=== PATIENT | male | born 1990 | race African-American/Black ===

== ENCOUNTER 2016-11-23 20:16 | Emergency (ER) | payer OTHER, SELFPAY ==
[~2016-11-23 20:16] MED LIST: ABIL15TA2 PO; ADVI200C5 PO; ARIP5TA PO; BACIOIN7 TOP; LAMI25TA PO; LITH300T2 OR; NORCOTAB PO; No Historical Meds; PARO20TA2 PO; PAXI20TA3 PO; PAXI30TA OR; TRAZ50TA4 PO; TRIL300S PO; TYLE325T5 PO; [UNRECOGNIZED DRUG - CODE] PO; [UNRECOGNIZED DRUG - REMARK]
[2016-11-23] MEDS ORDERED: IBUPROFEN 600 MG TAB As Ordered ONE (22:13)
[2016-11-23] MEDS ORDERED: ASPIRIN 81 MG CHEW TABLET As Ordered ONE (22:13)
[2016-11-23 22:23] LABS: BASO % 0.4 % (0.0-1.0); EOS # 0.1 K/mm3 (0.0-0.50); LARGE UNSTAINED CELL # 0.2 K/mm3 (0.0-0.4); LARGE UNSTAINED CELL % 1.6 % (0.0-4.0); LYMPH # 2.6 K/mm3 (1.5-6.5); LYMPH % 23.6 % (24.0-44.0); MEAN CORPUSCULAR HEMOGLOBIN 29.4 pg (27.0-33.0); MEAN CORPUSCULAR VOLUME 91.6 fl (80.0-96.0); MONO # 0.7 K/mm3 (0.0-0.8); MONO % 6.1 % (0.0-5.0); NEUTROPHILS # 7.4 K/mm3 (1.8-7.7); NEUTROPHILS % 67.3 % (36.0-66.0); PLATELET COUNT, AUTOMATED 268 k/mm3 (150-450); RED CELL DISTRIBUTION WIDTH 12.5 % (11.5-14.5)
[2016-11-23] MEDS ORDERED: LABETALOL 100 MG TAB As Ordered ONE (22:24)
[2016-11-23 22:48] LABS: BLOOD UREA NITROGEN 6 MG/DL (7-18); CREATININE FOR GFR 1.21 MG/DL (0.70-1.30); GLUCOSE, FASTING 84 MG/DL (70-105)
[2016-11-23 23:08] LABS: ANION GAP 7 MEQ/L (8-16); CARBON DIOXIDE LEVEL 28 MEQ/L (21-32); CHLORIDE LEVEL 105 MEQ/L (98-107); POTASSIUM SERUM 3.9 MEQ/L (3.5-5.1); SODIUM LEVEL 140 MEQ/L (136-145)
[2016-11-23] MEDS ORDERED: CYCLOBENZAPRINE 10 MG TAB As Ordered ONE (23:16)
--- NOTE | 2016-11-23 23:56 | EDDOCDS ---
Physician Documentation [facility] Name: Penny Vu Age: 26 yrs Sex: Male : 1990 Arrival Date: 11/23/2016 Time: 20:16 Bed 9 Private MD: NO PRIMARY PHYSICIAN, . Disposition: 11/23/16 23:11 Discharged to Home/Self Care. Impression: Other chest pain - musculoskeletal pain. - Condition is Stable. - Discharge Instructions: Musculoskeletal Pain, Muscle Pain, Adult. - Prescriptions for Ibuprofen 600 mg Oral Tablet - take 1 tablet by ORAL route every 6 hours As needed take with food; 30 tablet. Cyclobenzaprine 10 mg Oral Tablet - take 1 tablet by ORAL route 3 times per day As needed; 15 tablet. - Work Release Form - 2 day, Medication Reconciliation, Local Pharmacy Hours form. - Follow up: [facility] - Adults; When: Call to arrange an appointment; Reason: Recheck today's complaints, Continuance of care. - Problem is new. - Symptoms are unchanged. Historical: - Allergies: Amoxicillin (Upset stomach); PENICILLINS (Upset stomach); Paxil (erection dysfunction); - Home Meds: 1. none - PMHx: Anxiety; Bipolar disorder; Depression; Heart Murmur; Schizophrenia; - PSHx: Hernia repair- Umbilical; - Social history: Smoking status: Patient uses tobacco products, light tobacco smoker. No barriers to communication noted, The patient speaks fluent Macanese. - Family history: Not pertinent. - : The pt / caregiver states he / she is not on anticoagulants. Home medication list is obtained from the patient. - Exposure Risk Screening:: None identified. Vital Signs: 11/23 20:18 BP 127 / 61; Pulse 70; Resp 18; Temp 98.5(O); Pulse Ox 100% on R/A; Weight 104.78 kg / rs3 231 lbs (M); Height 5 ft. 11 in. (180.34 cm) (R); Pain 8/10; 23:24 BP 122 / 60; Pulse 67; Resp 18 S; Temp 97.9(O); Pulse Ox 100% on R/A; af2 20:18 Body Mass Index 32.22 (104.78 kg, 180.34 cm) rs3 MDM: 21:21 Aspirin Chewable Tablet 324 mg PO once ordered. ke 21:21 Inclined Railway Operator/Pulse Ox/q 30 min VS ordered. ke 21:21 IV Saline Lock ordered. ke 21:21 Rhythm Strip to chart ordered. ke 21:21 Undress patient appropriately for examination ordered. ke 21:21 Ibuprofen 600 mg PO once ordered. ke 21:21 Basic Metabolic Profile Ordered. EDMS 21:21 CBC with Diff Ordered. EDMS 21:21 Cardiac Injury Profile Ordered. EDMS 21:21 Troponin Ordered. EDMS 21:22 ECG WITH READING ER PHYS+CARDIAG ordered. EDMS 21:23 Rib Unilat W/PA Chest Only Ordered. EDMS 21:24 [facility] [place] was scanned into [employer] and attached to record. ks16 21:42 Financial registration complete. ks16 23:08 CBC with Diff Reviewed. ke 23:08 Cardiac Injury Profile Reviewed. ke 23:08 Troponin Reviewed. ke 23:12 Cyclobenzaprine 10 mg PO once ordered. ke Administered Medications: 22:16 Drug: Ibuprofen 600 mg [ibuprofen 600 mg tablet (1 tabs)] Route: PO; af2 22:18 Drug: Aspirin 324 mg [aspirin 81 mg chewable tablet (4 tabs)] Route: PO; af2 23:23 Drug: Cyclobenzaprine 10 mg [cyclobenzaprine 10 mg tablet (1 tabs)] Route: PO; af2 Signatures: Dispatcher [employer] EDSantos Back, WATER SAFETY TEACHER WATER SAFETY TEACHER Mirna ApodacaRN RN rs3 Deyanira Pena RN RN af2 Shira Nunez, Reg Reg ks16 The chart was reviewed and I authenticate all verbal orders and agree with the evaluation and treatment provided.Attachments: 21:24 [facility] Payment Agreement ks16 MTDD
--- NOTE | 2016-11-23 23:56 | EDDOCDS ---
Nurse's Notes [facility] Name: Penny Vu Age: 26 yrs Sex: Male : 1990 Arrival Date: 11/23/2016 Time: 20:16 Bed 9 Private MD: NO PRIMARY PHYSICIAN, . Diagnosis: Other chest pain-musculoskeletal pain Presentation: 11/23 20:31 Presenting complaint: Patient states: sharp right anterior chest pain radiates to Right rs3 shoulder blade, unable to lift right arm above shoulder since this evening. went to work 4 PM. 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 pain worse with deep breathing. Aspirin was not taken prior to arrival. Adult Sepsis Screening: The patient does not have new or worsening altered mentation. Patient's respiratory rate is less than 22. Systolic blood pressure is greater than 100. Patient has a qSOFA score of 0- Negative Sepsis Screen. Suicide/Homicide risk assessment- the patient denies having any suicidal and/or homicidal ideations and does not present with any other emotional, behavioral or mental health complaints. Status: Patient is not a cargo service agent or dependent. Transition of care: patient was not received from another setting of care. 20:31 Method Of Arrival: Walkin/Carried/Asstd rs3 20:31 Acuity: HERMES Level 3 rs3 Triage Assessment: 20:38 General: Appears in no apparent distress. Pain: Location: anterior aspect of right rs3 upper chest, right lateral posterior chest and right arm. Pt Declines HIV testing. Cardiovascular: Chest pain is described as Pain is 7 out of 10 on a pain scale. radiates to right scapula episodes are continuous began 3 hours prior to arrival. Historical: - Allergies: Amoxicillin (Upset stomach); PENICILLINS (Upset stomach); Paxil (erection dysfunction); - Home Meds: 1. none - PMHx: Anxiety; Bipolar disorder; Depression; Heart Murmur; Schizophrenia; - PSHx: Hernia repair- Umbilical; - Social history: Smoking status: Patient uses tobacco products, light tobacco smoker. No barriers to communication noted, The patient speaks fluent Armenian. - Family history: Not pertinent. - : The pt / caregiver states he / she is not on anticoagulants. Home medication list is obtained from the patient. - Exposure Risk Screening:: None identified. Screenin:23 Screening information is obtained from the patient. Fall risk: No risks identified. af2 Assistance ADL's: requires no assistance with activities of daily living. Abuse/DV Screen: The patient / caregiver reports he/she is: not in a situation that causes fear, pain or injury. Nutritional screening: No deficits noted. Advance Directives: Currently, there is no health care proxy. home support is adequate. Assessment: 22:19 General: Appears in no apparent distress, comfortable, Behavior is appropriate for age, af2 cooperative. Pain: Location: chest and right lateral posterior chest Pain currently is 8 out of 10 on a pain scale. Neurological: Level of Consciousness is awake, alert, obeys commands. Cardiovascular: Heart tones S1 S2 present Rhythm is sinus rhythm No ectopy. Respiratory: Airway is patent Respiratory effort is even, unlabored, Breath sounds are clear bilaterally. Derm: Skin is normal. 22:20 General: reports lifting boxes at work, pain began then. states pain aggravated by af2 lifting arms, taking deep breaths.. 23:23 General: Appears in no apparent distress, comfortable, Behavior is appropriate for age, af2 cooperative. Neurological: Level of Consciousness is awake, alert, obeys commands. Cardiovascular: Rhythm is sinus rhythm No ectopy. Respiratory: Airway is patent Respiratory effort is even, unlabored. Derm: Skin is normal. Vital Signs: 20:18 BP 127 / 61; Pulse 70; Resp 18; Temp 98.5(O); Pulse Ox 100% on R/A; Weight 104.78 kg rs3 (M); Height 5 ft. 11 in. (180.34 cm) (R); Pain 8/10; 23:24 BP 122 / 60; Pulse 67; Resp 18 S; Temp 97.9(O); Pulse Ox 100% on R/A; af2 20:18 Body Mass Index 32.22 (104.78 kg, 180.34 cm) rs3 Vitals: 20:18 Log In Time: November 23, 2016 at 20:16. ct3 ED Course: 20:18 Patient visited by Emma Wei PCA. ct3 20:18 NO PRIMARY PHYSICIAN, . is Private Physician. ct3 20:18 Patient moved to Waiting ct3 20:19 Patient moved to Pre RCE ct3 20:36 Triage Initiated rs3 20:49 Patient moved to Triage 2 mdr 21:07 [facility] Webb FNP [facility]. ke 21:16 Patient visited by Santos Webb FNP. ke 21:24 [facility] Payment Agreement was scanned into [employer] and attached to record. ks16 21:28 Patient visited by Casey Leslie PCA. mdr 21:28 EKG done. (by ED staff). Reviewed by Santos ZIEGLER. mdr 21:29 Deyanira PenaRN is Primary Nurse. mdr 21:29 Patient moved to 9 mdr 21:31 Patient visited by Santos Webb FNP. ke 21:37 Patient visited by Suyapa Diop. nb2 21:37 Placed in gown. Bed in low position. Call light in reach. Side rails up X2. Cardiac nb2 monitor on. Pulse ox on. NIBP on. 22:16 Patient visited by Deyanira Pena RN. af2 22:16 Inserted saline lock: 18 gauge in right antecubital area and blood collected. The tm5 patient tolerated the procedure well. Labs drawn. (by ED staff). Sent per order to lab. 22:16 Basic Metabolic Profile Sent. tm5 22:16 CBC with Diff Sent. tm5 22:16 Cardiac Injury Profile Sent. tm5 22:16 Troponin Sent. tm5 23:03 Patient visited by Deyanira Pena RN. af2 23:10 [facility] is Referral Physician. ke 23:23 Discontinued IV lock intact, bleeding controlled, pressure dressing applied, No af2 redness/swelling at site. No procedures done that require assistance. 23:25 Patient visited by Deyanira Pena RN. af2 23:25 The patient / caregiver is instructed regarding the plan of care and ED course. af2 Administered Medications: 22:16 Drug: Ibuprofen 600 mg [ibuprofen 600 mg tablet (1 tabs)] Route: PO; af2 22:18 Drug: Aspirin 324 mg [aspirin 81 mg chewable tablet (4 tabs)] Route: PO; af2 23:23 Drug: Cyclobenzaprine 10 mg [cyclobenzaprine 10 mg tablet (1 tabs)] Route: PO; af2 Order Results: Lab Order: Basic Metabolic Profile; SPEC'M 11/23/16 22:14 Test: GLUCOSE, FASTING; Value: 84; Range: 70-105; Units: MG/DL; Status: F Test: BLOOD UREA NITROGEN; Value: 6; Range: 7-18; Abnormal: Below low normal; Units: MG/DL; Status: F Test: CREATININE FOR GFR; Value: 1.21; Range: 0.70-1.30; Units: MG/DL; Status: F Test: SODIUM LEVEL; Value: 140; Range: 136-145; Units: MEQ/L; Status: F Test: POTASSIUM SERUM; Value: 3.9; Range: 3.5-5.1; Units: MEQ/L; Status: F Test: CHLORIDE LEVEL; Value: 105; Range: 98-107; Units: MEQ/L; Status: F Test: CARBON DIOXIDE LEVEL; Value: 28; Range: 21-32; Units: MEQ/L; Status: F Test: ANION GAP; Value: 7; Range: 8-16; Abnormal: Below low normal; Units: MEQ/L; Status: F Test: CALCIUM LEVEL; Value: 9.0; Range: 8.5-10.1; Units: MG/DL; Status: F Lab Order: CBC with Diff; SPEC'M 11/23/16 22:14 Test: WHITE BLOOD COUNT; Value: 11.0; Range: 4.0-10.0; Abnormal: Above high normal; Units: K/mm3; Status: F Test: RED BLOOD COUNT; Value: 4.76; Range: 4.30-6.10; Units: M/mm3; Status: F Test: HEMOGLOBIN; Value: 14.0; Range: 14.0-18.0; Units: g/dl; Status: F Test: HEMATOCRIT; Value: 43.6; Range: 42.0-52.0; Units: %; Status: F Test: MEAN CORPUSCULAR VOLUME; Value: 91.6; Range: 80.0-96.0; Units: fl; Status: F Test: MEAN CORPUSCULAR HEMOGLOBIN; Value: 29.4; Range: 27.0-33.0; Units: pg; Status: F Test: MEAN CORPUSCULAR HGB CONC; Value: 32.0; Range: 32.0-36.5; Units: g/dl; Status: F Test: RED CELL DISTRIBUTION WIDTH; Value: 12.5; Range: 11.5-14.5; Units: %; Status: F Test: PLATELET COUNT, AUTOMATED; Value: 268; Range: 150-450; Units: k/mm3; Status: F Test: NEUTROPHILS %; Value: 67.3; Range: 36.0-66.0; Abnormal: Above high normal; Units: %; Status: F Test: LYMPH %; Value: 23.6; Range: 24.0-44.0; Abnormal: Below low normal; Units: %; Status: F Test: MONO %; Value: 6.1; Range: 0.0-5.0; Abnormal: Above high normal; Units: %; Status: F Test: EOS %; Value: 1.0; Range: 0.0-3.0; Units: %; Status: F Test: BASO %; Value: 0.4; Range: 0.0-1.0; Units: %; Status: F Test: LARGE UNSTAINED CELL %; Value: 1.6; Range: 0.0-4.0; Units: %; Status: F Test: NEUTROPHILS #; Value: 7.4; Range: 1.8-7.7; Units: K/mm3; Status: F Test: LYMPH #; Value: 2.6; Range: 1.5-6.5; Units: K/mm3; Status: F Test: MONO #; Value: 0.7; Range: 0.0-0.8; Units: K/mm3; Status: F Test: EOS #; Value: 0.1; Range: 0.0-0.50; Units: K/mm3; Status: F Test: BASO #; Value: 0.0; Range: 0.0-0.2; Units: K/mm3; Status: F Test: LARGE UNSTAINED CELL #; Value: 0.2; Range: 0.0-0.4; Units: K/mm3; Status: F Lab Order: Cardiac Injury Profile; SPEC'M 11/23/16 22:14 Test: CPK CREATINE PHOSPHOKINASE; Value: 1032; Range: 39-308; Abnormal: Above high normal; Units: U/L; Status: F Test: CK-MB VALUE MASS; Value: 4.5; Range: 0.0-3.6; Abnormal: Above high normal; Units: NG/ML; Status: F Test: MB/CK RELATIVE INDEX; Value: 0.43; Range: < OR =4; Status: F Test Note: ; DIAGNOSIS CRITERIA MMB ng/ml Relative Index (RI) NON-AMI < or = 5 N/A MARIEE ZONE > 5 < or = 4 AMI > 5 > 4 Lab Order: Troponin; MICHELE 11/23/16 22:14 Test: TROPONIN I; Value: < 0.02; Range: < 0.10; Units: NG/ML; Status: F Test Note: ; Troponin I Reference Interval for HYGIEIA LOCI: 99th Percentile= 0.00-0.045 ng/ml Risk Stratification: <= 0.10 ng/ml Decreased Risk for Adverse Clinical Events. 0.10-1.50 ng/ml Increased Risk for Adverse Clinical Events. Evaluation of additional criterion and/or repeat testing in 2-6 hours is suggested to rule out myocardial damage. >= 1.50 ng/ml Indicative of Myocardial Injury. Outcome: 23:11 Discharge ordered by Provider. 23:25 Discharge Assessment: Patient awake, alert and oriented x 3. No cognitive and/or af2 functional deficits noted. Patient verbalized understanding of disposition instructions. patient administered narcotics - no. The following High Risk Discharge criteria are identified: None. Discharged to home ambulatory. Condition: stable. Discharge instructions given to patient, Instructed on discharge instructions, follow up and referral plans. Demonstrated understanding of instructions, medications, Pt was receptive of discharge instructions/ teaching. No special radiology studies were completed. Property :Personal belongings accompany Pt. 23:55 Patient left the ED. af2 Signatures: Santos Webb, LINE MANAGER LINE MANAGER Mirna ApodacaRN RN rs3 Emma Wei, ANALYSIS INTERNSHIP ANALYSIS INTERNSHIP ct3 Deyanira PenaRN RN af2 Casey Leslie, ANALYSIS INTERNSHIP ANALYSIS INTERNSHIP mdr Shira Nunez, Reg Reg ks16 Suyapa Diop nb2 Whitney Espinoza,RN RN tm5 Corrections: (The following items were deleted from the chart) 20:40 20:18 BP 127 / 61; Pulse 70bpm; Resp 18bpm; Pulse Ox 10% RA; Temp 98.5F Oral; 104.78 kg rs3 Measured; Height 5 ft. 11 in. Reported; BMI: 32.2; Pain 8/10; ct3 MTDD
--- NOTE | 2016-11-24 08:30 | REP ---
Clinical: Right-sided pain . Technique: Frontal view of the chest with multiple views of the right hemithorax. Findings: Frontal view of the chest demonstrates no acute cardiopulmonary process. Multiple views of the right hemithorax demonstrates no obvious acute rib fracture or pathology. Impression: Normal right rib series Signed by Galileo Hunt MD 11/24/2016 08:21 A
--- NOTE | 2016-11-24 19:48 | ECGEPIP ---
Stationary ECG Study [facility] - ED Test Date: 2016-11-23 Pat Name: JOSE HESS Department: Room: - Gender: M Ferry Hand: mr : 1990 Requested By: RANJITH ZIEGLER Order Number: [id number] Reading MD: Sonam Polanco Measurements Intervals [place] Rate: 66 P: 57 ND: 158 QRS: 56 QRSD: 87 T: 31 QT: 391 QTc: 410 Interpretive Statements SINUS RHYTHM SIMILAR 07/07/16 Electronically Signed On 11-24-2016 19:48:44 EST by Sonam Polanco
--- NOTE | 2016-11-26 00:56 | EDDOCDS ---
Nurse's Notes [facility] Name: Penny Vu Age: 26 yrs Sex: Male : 1990 Arrival Date: 11/23/2016 Time: 20:16 Bed 9 Private MD: NO PRIMARY PHYSICIAN, . Diagnosis: Other chest pain-musculoskeletal pain Presentation: 11/23 20:31 Presenting complaint: Patient states: sharp right anterior chest pain radiates to Right rs3 shoulder blade, unable to lift right arm above shoulder since this evening. went to work 4 PM. 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 pain worse with deep breathing. Aspirin was not taken prior to arrival. Adult Sepsis Screening: The patient does not have new or worsening altered mentation. Patient's respiratory rate is less than 22. Systolic blood pressure is greater than 100. Patient has a qSOFA score of 0- Negative Sepsis Screen. Suicide/Homicide risk assessment- the patient denies having any suicidal and/or homicidal ideations and does not present with any other emotional, behavioral or mental health complaints. 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 Transition of care: patient was not received from another setting of care. 20:31 Method Of Arrival: Walkin/Carried/Asstd rs3 20:31 Acuity: HERMES Level 3 rs3 Triage Assessment: 20:38 General: Appears in no apparent distress. Pain: Location: anterior aspect of right rs3 upper chest, right lateral posterior chest and right arm. Pt Declines HIV testing. Cardiovascular: Chest pain is described as Pain is 7 out of 10 on a pain scale. radiates to right scapula episodes are continuous began 3 hours prior to arrival. Historical: - Allergies: Amoxicillin (Upset stomach); PENICILLINS (Upset stomach); Paxil (erection dysfunction); - Home Meds: 1. none - PMHx: Anxiety; Bipolar disorder; Depression; Heart Murmur; Schizophrenia; - PSHx: Hernia repair- Umbilical; - Social history: Smoking status: Patient uses tobacco products, light tobacco smoker. No barriers to communication noted, The patient speaks fluent [place]. - Family history: Not pertinent. - : The pt / caregiver states he / she is not on anticoagulants. Home medication list is obtained from the patient. - Exposure Risk Screening:: None identified. Screenin:23 Screening information is obtained from the patient. Fall risk: No risks identified. af2 Assistance ADL's: requires no assistance with activities of daily living. Abuse/DV Screen: The patient / caregiver reports he/she is: not in a situation that causes fear, pain or injury. Nutritional screening: No deficits noted. Advance Directives: Currently, there is no health care proxy. home support is adequate. Assessment: 22:19 General: Appears in no apparent distress, comfortable, Behavior is appropriate for age, af2 cooperative. Pain: Location: chest and right lateral posterior chest Pain currently is 8 out of 10 on a pain scale. Neurological: Level of Consciousness is awake, alert, obeys commands. Cardiovascular: Heart tones S1 S2 present Rhythm is sinus rhythm No ectopy. Respiratory: Airway is patent Respiratory effort is even, unlabored, Breath sounds are clear bilaterally. Derm: Skin is normal. 22:20 General: reports lifting boxes at work, pain began then. states pain aggravated by af2 lifting arms, taking deep breaths.. 23:23 General: Appears in no apparent distress, comfortable, Behavior is appropriate for age, af2 cooperative. Neurological: Level of Consciousness is awake, alert, obeys commands. Cardiovascular: Rhythm is sinus rhythm No ectopy. Respiratory: Airway is patent Respiratory effort is even, unlabored. Derm: Skin is normal. Vital Signs: 20:18 BP 127 / 61; Pulse 70; Resp 18; Temp 98.5(O); Pulse Ox 100% on R/A; Weight 104.78 kg rs3 (M); Height 5 ft. 11 in. (180.34 cm) (R); Pain 8/10; 23:24 BP 122 / 60; Pulse 67; Resp 18 S; Temp 97.9(O); Pulse Ox 100% on R/A; af2 20:18 Body Mass Index 32.22 (104.78 kg, 180.34 cm) rs3 Vitals: 20:18 Log In Time: November 23, 2016 at 20:16. ct3 ED Course: 20:18 Patient visited by Emma Wei PCA. ct3 20:18 NO PRIMARY PHYSICIAN, . is Private Physician. ct3 20:18 Patient moved to Waiting ct3 20:19 Patient moved to Pre RCE ct3 20:36 Triage Initiated rs3 20:49 Patient moved to Triage 2 mdr 21:07 [facility] ke 21:16 Patient visited by Santos Webb FNP. ke 21:24 [facility] Payment Agreement was scanned into SuccessTSM and attached to record. ks16 21:28 Patient visited by Casey Leslie, YAYA. mdr 21:28 EKG done. (by ED staff). Reviewed by Santos ZIEGLER. mdr 21:29 Deyanira PenaRN is Primary Nurse. mdr 21:29 Patient moved to 9 mdr 21:31 Patient visited by Santos Webb FNP. ke 21:37 Patient visited by Suyapa Diop. nb2 21:37 Placed in gown. Bed in low position. Call light in reach. Side rails up X2. Cardiac nb2 monitor on. Pulse ox on. NIBP on. 22:16 Patient visited by Deyanira Pena RN. af2 22:16 Inserted saline lock: 18 gauge in right antecubital area and blood collected. The tm5 patient tolerated the procedure well. Labs drawn. (by ED staff). Sent per order to lab. 22:16 Basic Metabolic Profile Sent. tm5 22:16 CBC with Diff Sent. tm5 22:16 Cardiac Injury Profile Sent. tm5 22:16 Troponin Sent. tm5 23:03 Patient visited by Deyanira Pena RN. af2 23:10 [facility] is Referral Physician. ke 23:23 Discontinued IV lock intact, bleeding controlled, pressure dressing applied, No af2 redness/swelling at site. No procedures done that require assistance. 23:25 Patient visited by Deyanira Pena RN. af2 23:25 The patient / caregiver is instructed regarding the plan of care and ED course. af2 11/24 08:59 Rib Unilat W/PA Chest Only Returned. EDMS 11:57 T-Sheet-- Draft Copy was scanned into SuccessTSM and attached to record. gb 11:58 ECG/EKG was scanned into Success[employer]M and attached to record. gb 11:58 Rhythm Strip was scanned into Success[employer]M and attached to record. gb 20:03 EKG-ADULT Returned. EDMS Administered Medications: 11/23 22:16 Drug: Ibuprofen 600 mg [ibuprofen 600 mg tablet (1 tabs)] Route: PO; af2 22:18 Drug: Aspirin 324 mg [aspirin 81 mg chewable tablet (4 tabs)] Route: PO; af2 23:23 Drug: Cyclobenzaprine 10 mg [cyclobenzaprine 10 mg tablet (1 tabs)] Route: PO; af2 Attachments: 11:58 Rhythm Strip gb Order Results: Lab Order: Basic Metabolic Profile; SPEC'M 11/23/16 22:14 Test: GLUCOSE, FASTING; Value: 84; Range: 70-105; Units: MG/DL; Status: F Test: BLOOD UREA NITROGEN; Value: 6; Range: 7-18; Abnormal: Below low normal; Units: MG/DL; Status: F Test: CREATININE FOR GFR; Value: 1.21; Range: 0.70-1.30; Units: MG/DL; Status: F Test: SODIUM LEVEL; Value: 140; Range: 136-145; Units: MEQ/L; Status: F Test: POTASSIUM SERUM; Value: 3.9; Range: 3.5-5.1; Units: MEQ/L; Status: F Test: CHLORIDE LEVEL; Value: 105; Range: 98-107; Units: MEQ/L; Status: F Test: CARBON DIOXIDE LEVEL; Value: 28; Range: 21-32; Units: MEQ/L; Status: F Test: ANION GAP; Value: 7; Range: 8-16; Abnormal: Below low normal; Units: MEQ/L; Status: F Test: CALCIUM LEVEL; Value: 9.0; Range: 8.5-10.1; Units: MG/DL; Status: F Lab Order: CBC with Diff; SPEC'M 11/23/16 22:14 Test: WHITE BLOOD COUNT; Value: 11.0; Range: 4.0-10.0; Abnormal: Above high normal; Units: K/mm3; Status: F Test: RED BLOOD COUNT; Value: 4.76; Range: 4.30-6.10; Units: M/mm3; Status: F Test: HEMOGLOBIN; Value: 14.0; Range: 14.0-18.0; Units: g/dl; Status: F Test: HEMATOCRIT; Value: 43.6; Range: 42.0-52.0; Units: %; Status: F Test: MEAN CORPUSCULAR VOLUME; Value: 91.6; Range: 80.0-96.0; Units: fl; Status: F Test: MEAN CORPUSCULAR HEMOGLOBIN; Value: 29.4; Range: 27.0-33.0; Units: pg; Status: F Test: MEAN CORPUSCULAR HGB CONC; Value: 32.0; Range: 32.0-36.5; Units: g/dl; Status: F Test: RED CELL DISTRIBUTION WIDTH; Value: 12.5; Range: 11.5-14.5; Units: %; Status: F Test: PLATELET COUNT, AUTOMATED; Value: 268; Range: 150-450; Units: k/mm3; Status: F Test: NEUTROPHILS %; Value: 67.3; Range: 36.0-66.0; Abnormal: Above high normal; Units: %; Status: F Test: LYMPH %; Value: 23.6; Range: 24.0-44.0; Abnormal: Below low normal; Units: %; Status: F Test: MONO %; Value: 6.1; Range: 0.0-5.0; Abnormal: Above high normal; Units: %; Status: F Test: EOS %; Value: 1.0; Range: 0.0-3.0; Units: %; Status: F Test: BASO %; Value: 0.4; Range: 0.0-1.0; Units: %; Status: F Test: LARGE UNSTAINED CELL %; Value: 1.6; Range: 0.0-4.0; Units: %; Status: F Test: NEUTROPHILS #; Value: 7.4; Range: 1.8-7.7; Units: K/mm3; Status: F Test: LYMPH #; Value: 2.6; Range: 1.5-6.5; Units: K/mm3; Status: F Test: MONO #; Value: 0.7; Range: 0.0-0.8; Units: K/mm3; Status: F Test: EOS #; Value: 0.1; Range: 0.0-0.50; Units: K/mm3; Status: F Test: BASO #; Value: 0.0; Range: 0.0-0.2; Units: K/mm3; Status: F Test: LARGE UNSTAINED CELL #; Value: 0.2; Range: 0.0-0.4; Units: K/mm3; Status: F Lab Order: Cardiac Injury Profile; SPEC'M 11/23/16 22:14 Test: CPK CREATINE PHOSPHOKINASE; Value: 1032; Range: 39-308; Abnormal: Above high normal; Units: U/L; Status: F Test: CK-MB VALUE MASS; Value: 4.5; Range: 0.0-3.6; Abnormal: Above high normal; Units: NG/ML; Status: F Test: MB/CK RELATIVE INDEX; Value: 0.43; Range: < OR =4; Status: F Test Note: ; DIAGNOSIS CRITERIA MMB ng/ml Relative Index (RI) NON-AMI < or = 5 N/A MARIEE ZONE > 5 < or = 4 AMI > 5 > 4 Lab Order: Troponin; SPEC'M 11/23/16 22:14 Test: TROPONIN I; Value: < 0.02; Range: < 0.10; Units: NG/ML; Status: F Test Note: ; Troponin I Reference Interval for [facility] LOCI: 99th Percentile= 0.00-0.045 ng/ml Risk Stratification: <= 0.10 ng/ml Decreased Risk for Adverse Clinical Events. 0.10-1.50 ng/ml Increased Risk for Adverse Clinical Events. Evaluation of additional criterion and/or repeat testing in 2-6 hours is suggested to rule out myocardial damage. >= 1.50 ng/ml Indicative of Myocardial Injury. 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[employer]: ; : 1990 Requested By: SANTOS ZIEGLER; Order Number: [id number] Reading MD: Sonam Polanco; Measurements; Intervals [place]; Rate: 66 P: 57; NJ: 158 QRS: 56; QRSD: 87 T: 31; QT: 391; QTc: 410; Interpretive Statements; SINUS RHYTHM; SIMILAR 07/07/16; Electronically Signed On 11-24-2016 19:48:44 EST by Sonam Polanco; Radiology Order: Rib Unilat W/PA Chest Only Test: Rib Unilat W/PA Chest Only REASON FOR EXAMINATION: pain r side; Clinical: Right-sided pain .; ; Technique: Frontal view of the chest with multiple views of the right; hemithorax.; ; Findings:; Frontal view of the chest demonstrates no acute cardiopulmonary process.; Multiple views of the right hemithorax demonstrates no obvious acute rib fracture; or pathology.; ; Impression:; Normal right rib series; ; ; Signed by; Galileo Hunt MD 11/24/2016 08:21 A; Outcome: 11/23 23:11 Discharge ordered by Provider. marianna 23:25 Discharge Assessment: Patient awake, alert and oriented x 3. No cognitive and/or af2 functional deficits noted. Patient verbalized understanding of disposition instructions. patient administered narcotics - no. The following High Risk Discharge criteria are identified: None. Discharged to home ambulatory. Condition: stable. Discharge instructions given to patient, Instructed on discharge instructions, follow up and referral plans. Demonstrated understanding of instructions, medications, Pt was receptive of discharge instructions/ teaching. No special radiology studies were completed. Property :Personal belongings accompany Pt. 23:55 Patient left the ED. af2 Signatures: Dispatcher Med[employer] EDMS Janine Johnson, Reg Reg gb Santos Webb, PRODUCTION MECHANIC TIN CANS PRODUCTION MECHANIC TIN CANS Mirna ApodacaRN RN rs3 Emma Wei, HEALTH AND FITNESS PROFESSOR HEALTH AND FITNESS PROFESSOR ct3 Deyanira Pena RN RN af2 Casey Leslie, HEALTH AND FITNESS PROFESSOR HEALTH AND FITNESS PROFESSOR mdr Shira Nunez, Reg Reg ks16 Suyapa Diop nb2 Whitney Espinoza,RN RN tm5 Corrections: (The following items were deleted from the chart) 20:40 20:18 BP 127 / 61; Pulse 70bpm; Resp 18bpm; Pulse Ox 10% RA; Temp 98.5F Oral; 104.78 kg rs3 Measured; Height 5 ft. 11 in. Reported; BMI: 32.2; Pain 8/10; ct3 Chart Complete MTDD
--- NOTE | 2016-11-26 00:56 | EDDOCDS ---
Physician Documentation [facility] Name: Penny Vu Age: 26 yrs Sex: Male : 1990 Arrival Date: 11/23/2016 Time: 20:16 Bed 9 Private MD: NO PRIMARY PHYSICIAN, . Disposition: 11/23/16 23:11 Discharged to Home/Self Care. Impression: Other chest pain - musculoskeletal pain. - Condition is Stable. - Discharge Instructions: Musculoskeletal Pain, Muscle Pain, Adult. - Prescriptions for Ibuprofen 600 mg Oral Tablet - take 1 tablet by ORAL route every 6 hours As needed take with food; 30 tablet. Cyclobenzaprine 10 mg Oral Tablet - take 1 tablet by ORAL route 3 times per day As needed; 15 tablet. - Work Release Form - 2 day, Medication Reconciliation, Local Pharmacy Hours form. - Follow up: [facility] - Adults; When: Call to arrange an appointment; Reason: Recheck today's complaints, Continuance of care. - Problem is new. - Symptoms are unchanged. Historical: - Allergies: Amoxicillin (Upset stomach); PENICILLINS (Upset stomach); Paxil (erection dysfunction); - Home Meds: 1. none - PMHx: Anxiety; Bipolar disorder; Depression; Heart Murmur; Schizophrenia; - PSHx: Hernia repair- Umbilical; - Social history: Smoking status: Patient uses tobacco products, light tobacco smoker. No barriers to communication noted, The patient speaks fluent Singaporean. - Family history: Not pertinent. - : The pt / caregiver states he / she is not on anticoagulants. Home medication list is obtained from the patient. - Exposure Risk Screening:: None identified. Vital Signs: 11/23 20:18 BP 127 / 61; Pulse 70; Resp 18; Temp 98.5(O); Pulse Ox 100% on R/A; Weight 104.78 kg / rs3 231 lbs (M); Height 5 ft. 11 in. (180.34 cm) (R); Pain 8/10; 23:24 BP 122 / 60; Pulse 67; Resp 18 S; Temp 97.9(O); Pulse Ox 100% on R/A; af2 20:18 Body Mass Index 32.22 (104.78 kg, 180.34 cm) rs3 MDM: 21:21 Aspirin Chewable Tablet 324 mg PO once ordered. ke 21:21 Technical Marketing Engineer/Pulse Ox/q 30 min VS ordered. ke 21:21 IV Saline Lock ordered. ke 21:21 Rhythm Strip to chart ordered. ke 21:21 Undress patient appropriately for examination ordered. ke 21:21 Ibuprofen 600 mg PO once ordered. ke 21:21 Basic Metabolic Profile Ordered. EDMS 21:21 CBC with Diff Ordered. EDMS 21:21 Cardiac Injury Profile Ordered. EDMS 21:21 Troponin Ordered. EDMS 21:22 ECG WITH READING ER PHYS+CARDIAG ordered. EDMS 21:23 Rib Unilat W/PA Chest Only Ordered. EDMS 21:24 [facility] Payment Agreement was scanned into LIFX and attached to record. ks16 21:42 Financial registration complete. ks16 23:08 CBC with Diff Reviewed. ke 23:08 Cardiac Injury Profile Reviewed. ke 23:08 Troponin Reviewed. ke 23:12 Cyclobenzaprine 10 mg PO once ordered. 11/24 11:57 T-Sheet-- Draft Copy was scanned into LIFX and attached to record. gb 11:58 ECG/EKG was scanned into LIFX and attached to record. gb 11:58 Rhythm Strip was scanned into LIFX and attached to record. gb Administered Medications: 11/23 22:16 Drug: Ibuprofen 600 mg [ibuprofen 600 mg tablet (1 tabs)] Route: PO; af2 22:18 Drug: Aspirin 324 mg [aspirin 81 mg chewable tablet (4 tabs)] Route: PO; af2 23:23 Drug: Cyclobenzaprine 10 mg [cyclobenzaprine 10 mg tablet (1 tabs)] Route: PO; af2 Signatures: Dispatcher Med[employer] EDNH Janine Johnson, Reg Reg gb Santos Webb, DIRECTOR DIETETICS DEPARTMENT DIRECTOR DIETETICS DEPARTMENT Mirna ApodacaRN RN rs3 Deyanira PenaRN RN af2 Shira Nunez, Reg Reg ks16 The chart was reviewed and I authenticate all verbal orders and agree with the evaluation and treatment provided.Attachments: 21:24 [facility] Payment Agreement [facility] 11/24 11:57 T-Sheet-- Draft Copy gb 11:58 ECG/EKG gb Chart Complete MTDD
--- NOTE | 2016-11-26 00:56 | EDDOCDS ---
Physician Documentation [facility] Name: Penny Vu Age: 26 yrs Sex: Male : 1990 Arrival Date: 11/23/2016 Time: 20:16 Bed 9 Private MD: NO PRIMARY PHYSICIAN, . Disposition: 11/23/16 23:11 Discharged to Home/Self Care. Impression: Other chest pain - musculoskeletal pain. - Condition is Stable. - Discharge Instructions: Musculoskeletal Pain, Muscle Pain, Adult. - Prescriptions for Ibuprofen 600 mg Oral Tablet - take 1 tablet by ORAL route every 6 hours As needed take with food; 30 tablet. Cyclobenzaprine 10 mg Oral Tablet - take 1 tablet by ORAL route 3 times per day As needed; 15 tablet. - Work Release Form - 2 day, Medication Reconciliation, Local Pharmacy Hours form. - Follow up: [facility] - Ad[facility]; When: Call to arrange an appointment; Reason: Recheck today's complaints, Continuance of care. - Problem is new. - Symptoms are unchanged. Historical: - Allergies: Amoxicillin (Upset stomach); PENICILLINS (Upset stomach); Paxil (erection dysfunction); - Home Meds: 1. none - PMHx: Anxiety; Bipolar disorder; Depression; Heart Murmur; Schizophrenia; - PSHx: Hernia repair- Umbilical; - Social history: Smoking status: Patient uses tobacco products, light tobacco smoker. No barriers to communication noted, The patient speaks fluent [place]. - Family history: Not pertinent. - : The pt / caregiver states he / she is not on anticoagulants. Home medication list is obtained from the patient. - Exposure Risk Screening:: None identified. Vital Signs: 11/23 20:18 BP 127 / 61; Pulse 70; Resp 18; Temp 98.5(O); Pulse Ox 100% on R/A; Weight 104.78 kg / rs3 231 lbs (M); Height 5 ft. 11 in. (180.34 cm) (R); Pain 8/10; 23:24 BP 122 / 60; Pulse 67; Resp 18 S; Temp 97.9(O); Pulse Ox 100% on R/A; af2 20:18 Body Mass Index 32.22 (104.78 kg, 180.34 cm) rs3 MDM: 21:21 Aspirin Chewable Tablet 324 mg PO once ordered. ke 21:21 Aerospace Mechanic/Pulse Ox/q 30 min VS ordered. ke 21:21 IV Saline Lock ordered. ke 21:21 Rhythm Strip to chart ordered. ke 21:21 Undress patient appropriately for examination ordered. ke 21:21 Ibuprofen 600 mg PO once ordered. ke 21:21 Basic Metabolic Profile Ordered. EDMS 21:21 CBC with Diff Ordered. EDMS 21:21 Cardiac Injury Profile Ordered. EDMS 21:21 Troponin Ordered. EDMS 21:22 ECG WITH READING ER PHYS+CARDIAG ordered. EDMS 21:23 Rib Unilat W/PA Chest Only Ordered. EDMS 21:24 ON LICENSE OF [facility] Payment Agreement was scanned into [employer] and attached to record. ks16 21:42 Financial registration complete. ks16 23:08 CBC with Diff Reviewed. ke 23:08 Cardiac Injury Profile Reviewed. ke 23:08 Troponin Reviewed. ke 23:12 Cyclobenzaprine 10 mg PO once ordered. 11/24 11:57 T-Sheet-- Draft Copy was scanned into [employer] and attached to record. gb 11:58 ECG/EKG was scanned into [employer] and attached to record. gb 11:58 Rhythm Strip was scanned into [employer] and attached to record. gb Administered Medications: 11/23 22:16 Drug: Ibuprofen 600 mg [ibuprofen 600 mg tablet (1 tabs)] Route: PO; af2 22:18 Drug: Aspirin 324 mg [aspirin 81 mg chewable tablet (4 tabs)] Route: PO; af2 23:23 Drug: Cyclobenzaprine 10 mg [cyclobenzaprine 10 mg tablet (1 tabs)] Route: PO; af2 Signatures: Dispatcher [employer] EDND Janine Johnson, Reg Reg gb Santos Webb, ARTISTS' MODEL ARTISTS' MODEL Mirna ApodacaRN RN rs3 Deyanira PenaRN RN af2 Shira Nunez, Reg Reg ks16 The chart was reviewed and I authenticate all verbal orders and agree with the evaluation and treatment provided.Attachments: 21:24 ON LICENSE OF [facility] Payment Agreement [facility] 11/24 11:57 T-Sheet-- Draft Copy gb 11:58 ECG/EKG gb Chart Complete MTDD
== END 2016-11-23 23:55 | disposition home or self-care (01) ==
LOC: M ED 20:16
DX: R07.89 Other chest pain (principal); F31.9 Bipolar disorder, unspecified; R01.1 Cardiac murmur, unspecified; F20.9 Schizophrenia, unspecified; F17.210 Nicotine dependence, cigarettes, uncomplicated; Z88.0 Allergy status to penicillin; Z88.8 Allergy status to other drugs, medicaments and biological substances

== ENCOUNTER 2017-02-13 18:25 | Emergency (ER) | payer SELFPAY ==
[~2017-02-13] VITALS: Ht 180.3 cm; Wt 111.1 kg
[~2017-02-13 18:25] MED LIST changes: -PARO20TA2 PO; +PARO20TA3 PO
[2017-02-13 19:54] VITALS: BP 126/80
== END 2017-02-13 20:00 | disposition home or self-care (01) ==
LOC: M ED 19:12
DX: F41.9 Anxiety disorder, unspecified (principal); Z88.0 Allergy status to penicillin; F17.210 Nicotine dependence, cigarettes, uncomplicated

== ENCOUNTER 2017-05-24 19:14 | Emergency (ER) | payer SELFPAY ==
[~2017-05-24] VITALS: Ht 180.3 cm; Wt 102.9 kg
[2017-05-24 19:14] VITALS: BP 129/69
[~2017-05-24 19:14] MED LIST changes: -ABIL15TA2 PO; +ABIL1TAB12 PO; +PAXI20TA29 PO; -PAXI20TA3 PO; +TRAZ50TA11 PO; -TRAZ50TA4 PO
[2017-05-24] MEDS ORDERED: IBUP80TA PO (21:01)
[2017-05-24] MEDS ORDERED: IBUPROFEN 600 MG TAB PO ONE (21:15)
== END 2017-05-24 21:28 | disposition home or self-care (01) ==
LOC: M ED 19:14
DX: M23.92 Unspecified internal derangement of left knee (principal); F17.210 Nicotine dependence, cigarettes, uncomplicated

== ENCOUNTER 2017-06-28 13:04 | Emergency (ER) | payer SELFPAY ==
[~2017-06-28] VITALS: Ht 180.3 cm; Wt 100.0 kg
[~2017-06-28 13:04] MED LIST changes: +IBUP80TA PO
[2017-06-28] MEDS ORDERED: VIST25CA PO (16:35)
[2017-06-28 16:45] VITALS: BP 135/72
[2017-06-28] MEDS ORDERED: hydrOXYzine 25 MG TAB PO ONE (16:45)
== END 2017-06-28 16:46 | disposition home or self-care (01) ==
LOC: M ED 13:04
DX: F41.9 Anxiety disorder, unspecified (principal); Z72.0 Tobacco use

== ENCOUNTER 2017-11-01 14:32 | Emergency (ER) | payer SELFPAY ==
[2017-11-01 15:28] LABS: INFLUENZA A AMPLIFICATION POSITIVE (NEGATIVE); INFLUENZA B AMPLIFICATION NEGATIVE (NEGATIVE)
== END 2017-11-01 18:19 | disposition left against medical advice (07) ==
LOC: M ED 14:32
DX: R68.89 Other general symptoms and signs (principal); Z53.21 Procedure and treatment not carried out due to patient leaving prior to being seen by health care provider

== ENCOUNTER 2017-11-15 09:23 | Emergency (ER) | payer SELFPAY ==
[2017-11-15] MEDS: ACETAMINOPHEN 325 MG TAB PO (10:23)
== END 2017-11-15 11:05 | disposition home or self-care (01) ==
LOC: M ED 09:23
DX: J20.8 Acute bronchitis due to other specified organisms (principal); G43.909 Migraine, unspecified, not intractable, without status migrainosus; F17.200 Nicotine dependence, unspecified, uncomplicated; Z88.0 Allergy status to penicillin; Z88.5 Allergy status to narcotic agent; Z88.8 Allergy status to other drugs, medicaments and biological substances
CPT/HCPCS: 71046

== ENCOUNTER 2018-04-20 17:13 | Emergency (ER) | payer SELFPAY ==
[2018-04-20] MEDS: NAPROXEN 250 MG TAB PO (18:53)
== END 2018-04-20 19:09 | disposition home or self-care (01) ==
LOC: M ED 17:13
DX: S93.401A Sprain of unspecified ligament of right ankle, initial encounter (principal); X58.XXXA Exposure to other specified factors, initial encounter; Y92.89 Other specified places as the place of occurrence of the external cause; F31.9 Bipolar disorder, unspecified; G43.909 Migraine, unspecified, not intractable, without status migrainosus; F17.200 Nicotine dependence, unspecified, uncomplicated; Z88.0 Allergy status to penicillin; Z88.5 Allergy status to narcotic agent; Z88.8 Allergy status to other drugs, medicaments and biological substances
CPT/HCPCS: 73610

== ENCOUNTER 2018-10-15 10:09 | Emergency (ER) | payer OTHER, SELFPAY ==
[~2018-10-15] VITALS: Ht 180.3 cm; Wt 117.3 kg
[~2018-10-15 10:09] MED LIST changes: +ACET650S3 PR; +NAPR-50 PO; +NYQU1LIQ PO; +PROAAER10 INH; +TRAZ-160 PO; -TRAZ50TA11 PO; +TYLE500T78 PO; +VIST25CA PO; +ZITHTAB PO
[2018-10-15 12:56] VITALS: BP 117/57
== END 2018-10-15 12:58 | disposition home or self-care (01) ==
LOC: M ED 10:09
DX: F33.0 Major depressive disorder, recurrent, mild (principal); F19.11 Other psychoactive substance abuse, in remission; G43.909 Migraine, unspecified, not intractable, without status migrainosus; Z86.19 Personal history of other infectious and parasitic diseases; M17.12 Unilateral primary osteoarthritis, left knee; G89.29 Other chronic pain; Z87.891 Personal history of nicotine dependence; Z88.1 Allergy status to other antibiotic agents; Z88.0 Allergy status to penicillin; Z88.5 Allergy status to narcotic agent; Z88.8 Allergy status to other drugs, medicaments and biological substances

== ENCOUNTER 2019-03-16 19:10 | Emergency (ER) | payer SELFPAY ==
[~2019-03-16] VITALS: Ht 180.3 cm; Wt 111.2 kg
[2019-03-16 19:10] VITALS: BP 125/72
[~2019-03-16 19:10] MED LIST changes: +ARIP1TAB6 PO; -ARIP5TA PO; +HYDR-3715 PO; -NAPR-50 PO; +NAPR-837 PO; -NORCOTAB PO; -TRAZ-160 PO; +TRAZ-252 PO
[2019-03-16] MEDS ORDERED: MAGIC MOUTHWASH SUSPENSION BTL SS STA (19:33)
[2019-03-16] MEDS ORDERED: ACETAMINOPHEN 500 MG TAB PO ONE (19:45)
[2019-03-16] MEDS ORDERED: CLEO300C2 PO (20:27)
[2019-03-16] MEDS ORDERED: MAGICMW SSP (20:28)
== END 2019-03-16 20:39 | disposition home or self-care (01) ==
LOC: M ED 19:10
DX: S02.5XXA Fracture of tooth (traumatic), initial encounter for closed fracture (principal); X58.XXXA Exposure to other specified factors, initial encounter; Y92.9 Unspecified place or not applicable; Y93.9 Activity, unspecified; Y99.9 Unspecified external cause status; K02.9 Dental caries, unspecified; K08.89 Other specified disorders of teeth and supporting structures; I09.9 Rheumatic heart disease, unspecified; F12.10 Cannabis abuse, uncomplicated; Z88.0 Allergy status to penicillin; Z88.5 Allergy status to narcotic agent

== ENCOUNTER 2019-12-23 13:49 | Emergency (ER) | payer MEDICAID, OTHER, SELFPAY ==
[~2019-12-23] VITALS: Ht 180.3 cm; Wt 111.8 kg
[~2019-12-23 13:49] MED LIST changes: +CLEO300C2 PO; +MAGICMW SSP
[2019-12-23] MEDS ORDERED: ADVI200T17 PO (14:20)
[2019-12-23] MEDS ORDERED: NS 1,000 ML IV ONE (14:45)
[2019-12-23 15:50] LABS: BASO % 0.3 % (0.0-1.0); EOS % 0.1 % (0.0-3.0); HEMATOCRIT 43.1 % (42.0-52.0); LYMPH % 9.2 % (24.0-44.0); MEAN CORPUSCULAR HEMOGLOBIN 29.4 pg (27.0-33.0); MEAN CORPUSCULAR HGB CONC 32.5 g/dl (32.0-36.5); MEAN CORPUSCULAR VOLUME 90.5 fl (80.0-96.0); MONO # 1.1 10^3/uL (0.0-0.8); MONO % 10.7 % (0.0-5.0); NEUTROPHILS # 8.4 10^3/uL (1.5-8.5); NEUTROPHILS % 79.5 % (36.0-66.0); PLATELET COUNT, AUTOMATED 311 10^3/uL (150-450); RED BLOOD COUNT 4.76 10^6/uL (4.30-6.10); WHITE BLOOD COUNT 10.6 10^3/uL (4.0-10.0)
[2019-12-23 16:27] LABS: ALT/SGPT 39 U/L (12-78); BILIRUBIN,DIRECT 0.1 MG/DL (0.0-0.2); BILIRUBIN,TOTAL 0.4 MG/DL (0.2-1.0); BLOOD UREA NITROGEN 7 MG/DL (7-18); CALCIUM LEVEL 8.9 MG/DL (8.5-10.1); CARBON DIOXIDE LEVEL 28 MEQ/L (21-32); CHLORIDE LEVEL 108 MEQ/L (98-107); CPK CREATINE PHOSPHOKINASE 442 U/L (39-308); CREATININE FOR GFR 1.09 MG/DL (0.70-1.30); GLOMERULAR FILTRATION RATE > 60.0 (>60); GLUCOSE, FASTING 76 MG/DL (70-100); POTASSIUM SERUM 3.9 MEQ/L (3.5-5.1); SODIUM LEVEL 140 MEQ/L (136-145); TOTAL PROTEIN 7.6 GM/DL (6.4-8.2)
[2019-12-23] MEDS ORDERED: KETOROLAC 30 MG/ML VIAL (J1885) IV ONE (17:00)
[2019-12-23] MEDS ORDERED: ONDA4TAB6 PO (17:25)
[2019-12-23] MEDS ORDERED: IBUP-1022 PO (17:25)
[2019-12-23 17:49] VITALS: BP 126/78
== END 2019-12-23 17:45 | disposition home or self-care (01) ==
LOC: M ED 13:49 → EDBD 13:49 → M ED 17:45
DX: A08.4 Viral intestinal infection, unspecified (principal); R11.2 Nausea with vomiting, unspecified; R19.7 Diarrhea, unspecified; G43.909 Migraine, unspecified, not intractable, without status migrainosus; K21.9 Gastro-esophageal reflux disease without esophagitis; F41.9 Anxiety disorder, unspecified; F31.89 Other bipolar disorder; F20.9 Schizophrenia, unspecified; Z87.01 Personal history of pneumonia (recurrent); F17.200 Nicotine dependence, unspecified, uncomplicated; F12.10 Cannabis abuse, uncomplicated; Z88.0 Allergy status to penicillin; Z88.5 Allergy status to narcotic agent
CPT/HCPCS: 80048; 80076; 81001; 82550; 85025; 96361; 96374; 99284; J1885

== ENCOUNTER 2022-03-13 11:48 | Emergency (ER) | payer MEDICAID ==
[~2022-03-13] VITALS: Ht 180.3 cm; Wt 105.1 kg
[~2022-03-13 11:48] MED LIST changes: +ADVI200T17 PO; +IBUP-1022 PO; +ONDA4TAB6 PO
[2022-03-13] MEDS ORDERED: NS 1,000 ML IV ONE (15:25)
[2022-03-13] MEDS ORDERED: ONDANSETRON 4MG/2ML VIAL IV ONE (15:25)
[2022-03-13] MEDS ORDERED: PANTOPRAZOLE 40MG VIAL IV ONE (15:25)
[2022-03-13 16:12] LABS: BASO % 0.4 % (0.0-1.0); HEMATOCRIT 42.9 % (42.0-52.0); LYMPH # 1.9 10^3/uL (1.5-5.0); MEAN CORPUSCULAR HGB CONC 32.6 g/dl (32.0-36.5); MEAN CORPUSCULAR VOLUME 91.9 fl (80.0-96.0); MONO # 1.3 10^3/uL (0.0-0.8); MONO % 13.9 % (2.0-8.0); NEUTROPHILS # 5.9 10^3/uL (1.5-8.5); NEUTROPHILS % 64.5 % (36.0-66.0); PLATELET COUNT, AUTOMATED 256 10^3/uL (150-450); RED BLOOD COUNT 4.67 10^6/uL (4.30-6.10); WHITE BLOOD COUNT 9.2 10^3/uL (4.0-10.0)
[2022-03-13 16:39] LABS: ALBUMIN 3.9 GM/DL (3.2-5.2); ALT/SGPT 29 U/L (12-78); BILIRUBIN,DIRECT 0.1 MG/DL (0.0-0.2); BILIRUBIN,TOTAL 0.3 MG/DL (0.2-1.0); BLOOD UREA NITROGEN 8 MG/DL (7-18); CALCIUM LEVEL 8.8 MG/DL (8.5-10.1); CARBON DIOXIDE LEVEL 30 MEQ/L (21-32); CHLORIDE LEVEL 105 MEQ/L (98-107); CREATININE FOR GFR 1.21 MG/DL (0.70-1.30); ETHYL ALCOHOL (ETHANOL) < 0.003 % (0.000-0.010); GLOMERULAR FILTRATION RATE > 60.0 (>60); GLUCOSE, FASTING 76 MG/DL (70-100); LIPASE 70 U/L (73-393); POTASSIUM SERUM 3.7 MEQ/L (3.5-5.1); SODIUM LEVEL 139 MEQ/L (136-145); TOTAL PROTEIN 7.5 GM/DL (6.4-8.2)
[2022-03-13 16:52] LABS: INR 1.08; PROTHROMBIN TIME 14.4 SECONDS (12.7-14.5)
[2022-03-13 16:53] LABS: PARTIAL THROMBOPLASTIN TIME 33.7 SECONDS (25.9-37.0)
[2022-03-13] MEDS ORDERED: PROT1TAB2 PO (17:51)
[2022-03-13] MEDS ORDERED: ONDA4TAB6 PO (17:51)
[2022-03-13 17:52] VITALS: BP 139/86
== END 2022-03-13 18:12 | disposition home or self-care (01) ==
LOC: M ED 11:48 → EDBD 11:48 → EDUNIT# 11:48 → M ED 18:12
DX: K29.20 Alcoholic gastritis without bleeding (principal); F10.10 Alcohol abuse, uncomplicated; K21.9 Gastro-esophageal reflux disease without esophagitis; F41.9 Anxiety disorder, unspecified; F32.A Depression, unspecified; F17.200 Nicotine dependence, unspecified, uncomplicated; Z88.0 Allergy status to penicillin; Z88.5 Allergy status to narcotic agent; Z88.8 Allergy status to other drugs, medicaments and biological substances
CPT/HCPCS: 80048; 80076; 82077; 83690; 85025; 85610; 85730; 96361; 96374; 96375; 99284; C9113; J2405

== ENCOUNTER 2022-06-16 09:16 | Emergency (ER) | payer OTHER ==
[~2022-06-16] VITALS: Ht 180.3 cm; Wt 99.9 kg
[~2022-06-16 09:16] MED LIST changes: +PROT1TAB2 PO
[2022-06-16] MEDS ORDERED: HYDR-3363 PO (09:23)
[2022-06-16] MEDS ORDERED: SERT50TA29 PO (09:23)
[2022-06-16] MEDS ORDERED: PRAZ1CAP PO (09:23)
[2022-06-16] MEDS ORDERED: FLUORESCEIN OPHTH 1 MG STRIP OS ONE (11:15)
[2022-06-16] MEDS ORDERED: PROPARACAINE 0.5% OPHTH SOL 15ML OS ONE (11:15)
[2022-06-16 11:42] VITALS: BP 133/78
== END 2022-06-16 11:53 | disposition home or self-care (01) ==
LOC: M ED 09:16
DX: H57.12 Ocular pain, left eye (principal); Z88.0 Allergy status to penicillin; Z88.1 Allergy status to other antibiotic agents; Z88.6 Allergy status to analgesic agent; Z79.899 Other long term (current) drug therapy

== ENCOUNTER 2022-06-27 12:22 | Emergency (ER) | payer OTHER ==
[~2022-06-27] VITALS: Ht 180.3 cm; Wt 101.1 kg
[~2022-06-27 12:22] MED LIST changes: +HYDR-3363 PO; +PRAZ1CAP PO; +SERT50TA29 PO
[2022-06-27] MEDS ORDERED: LIDOCAINE 5% (LIDODERM) PATCH TD ONE (14:05)
[2022-06-27] MEDS ORDERED: ACETAMINOPHEN 500 MG TAB PO ONE (14:05)
[2022-06-27] MEDS ORDERED: LIDO5DIS41 TOP (14:43)
[2022-06-27 15:36] VITALS: BP 123/73
[2022-06-28] MEDS ORDERED: **NOTE PATIENT COMMENT** MISC XX ONE (02:00)
== END 2022-06-27 15:38 | disposition home or self-care (01) ==
LOC: M ED 12:22
DX: S39.012A Strain of muscle, fascia and tendon of lower back, initial encounter (principal); M51.36 Other intervertebral disc degeneration, lumbar region; V89.2XXA Person injured in unspecified motor-vehicle accident, traffic, initial encounter; G43.909 Migraine, unspecified, not intractable, without status migrainosus; F41.9 Anxiety disorder, unspecified; F32.9 Major depressive disorder, single episode, unspecified; F20.9 Schizophrenia, unspecified; F31.9 Bipolar disorder, unspecified; K21.9 Gastro-esophageal reflux disease without esophagitis; Z87.01 Personal history of pneumonia (recurrent); F17.200 Nicotine dependence, unspecified, uncomplicated; F12.10 Cannabis abuse, uncomplicated; Z79.899 Other long term (current) drug therapy; Z88.0 Allergy status to penicillin; Z88.5 Allergy status to narcotic agent

== ENCOUNTER 2023-02-08 14:03 | Emergency (ER) | payer OTHER ==
[~2023-02-08] VITALS: Ht 180.3 cm; Wt 99.9 kg
[~2023-02-08 14:03] MED LIST changes: +LIDO5DIS41 TOP; -PAXI20TA29 PO; +PAXI20TA30 PO
[2023-02-08 14:06] VITALS: BP 111/57
== END 2023-02-08 15:45 | disposition home or self-care (01) ==
LOC: M ED 14:03
DX: S23.3XXA Sprain of ligaments of thoracic spine, initial encounter (principal); X58.XXXA Exposure to other specified factors, initial encounter; Y92.89 Other specified places as the place of occurrence of the external cause; Y93.89 Activity, other specified; Y99.8 Other external cause status; R20.2 Paresthesia of skin; K21.9 Gastro-esophageal reflux disease without esophagitis; F31.9 Bipolar disorder, unspecified; F20.9 Schizophrenia, unspecified; Z88.0 Allergy status to penicillin; Z88.1 Allergy status to other antibiotic agents; Z88.8 Allergy status to other drugs, medicaments and biological substances; F17.200 Nicotine dependence, unspecified, uncomplicated

== ENCOUNTER 2023-03-05 14:48 | Emergency (ER) | payer OTHER ==
[~2023-03-05] VITALS: Ht 180.3 cm; Wt 95.2 kg
[2023-03-05 14:49] VITALS: BP 118/65
== END 2023-03-05 16:26 | disposition home or self-care (01) ==
LOC: M ED 14:48
DX: F41.9 Anxiety disorder, unspecified (principal); R20.2 Paresthesia of skin; F31.9 Bipolar disorder, unspecified; Z86.59 Personal history of other mental and behavioral disorders; F17.200 Nicotine dependence, unspecified, uncomplicated; Z88.0 Allergy status to penicillin; Z88.6 Allergy status to analgesic agent

== ENCOUNTER → 2023-03-21 | Outpatient (REF) | payer OTHER ==
[2023-03-21 17:37] LABS: BASO # 0.1 10^3/uL (0.0-0.2); BASO % 0.6 % (0.0-1.0); EOS # 0.1 10^3/uL (0.0-0.5); EOS % 0.6 % (0.0-3.0); HEMATOCRIT 42.3 % (42.0-52.0); HEMOGLOBIN 13.5 g/dl (13.5-17.5); LYMPH # 2.4 10^3/uL (1.5-5.0); LYMPH % 25.5 % (24.0-44.0); MEAN CORPUSCULAR HEMOGLOBIN 30.3 pg (27.0-33.0); MEAN CORPUSCULAR HGB CONC 31.9 g/dl (32.0-36.5); MEAN CORPUSCULAR VOLUME 95.1 fl (80.0-96.0); MONO # 0.7 10^3/uL (0.0-0.8); MONO % 7.1 % (2.0-8.0); NEUTROPHILS # 6.1 10^3/uL (1.5-8.5); NEUTROPHILS % 65.3 % (36.0-66.0); PLATELET COUNT, AUTOMATED 340 10^3/uL (150-450); RED BLOOD COUNT 4.45 10^6/uL (4.30-6.10); WHITE BLOOD COUNT 9.3 10^3/uL (4.0-10.0)
[2023-03-21 17:56] LABS: ALKALINE PHOSPHATASE 57 U/L (46-116); ALT/SGPT 17 U/L (7.0-40); AST/SGOT 21 U/L (<34); BILIRUBIN,TOTAL 0.3 MG/DL (0.3-1.2); BLOOD UREA NITROGEN 8 MG/DL (9-23); CALCIUM LEVEL 8.7 MG/DL (8.5-10.1); CARBON DIOXIDE LEVEL 30 MMOL/L (20-31); CHLORIDE LEVEL 106 MMOL/L (98-107); CREATININE FOR GFR 0.99 MG/DL (0.70-1.30); GLOMERULAR FILTRATION RATE > 60.0 (>60); GLUCOSE, FASTING 88 MG/DL (60-100); SODIUM LEVEL 138 MMOL/L (136-145); TOTAL PROTEIN 6.8 G/DL (5.7-8.2)
[2023-03-21 18:00] LABS: FOLATE 10.3 NG/ML (>5.4); THYROID STIMULATING HORMONE 0.739 uIU/ML (0.55-4.78); VITAMIN B12 LEVEL 627 PG/ML (211-911)
== END ==
LOC: M LAB REF 16:17
PROVIDERS: ATTEND Pediatrics
DX: F10.10 Alcohol abuse, uncomplicated (principal); R20.2 Paresthesia of skin

== ENCOUNTER → 2023-04-11 | Outpatient (CLI) | payer OTHER | LOC: M SOG 08:58 | PROVIDERS: ATTEND Physician Assistant | DX: M25.511 Pain in right shoulder (principal) ==

== ENCOUNTER 2023-05-24 16:27 | Emergency (ER) | payer OTHER ==
[~2023-05-24] VITALS: Ht 180.3 cm; Wt 94.7 kg
[2023-05-24 16:28] VITALS: BP 114/60; O2SAT 97
[2023-05-24 16:55] VITALS: TEMP 98.3
== END 2023-05-24 16:54 | disposition left against medical advice (07) ==
LOC: M ED 16:27
DX: Z53.21 Procedure and treatment not carried out due to patient leaving prior to being seen by health care provider (principal)

== ENCOUNTER 2023-08-10 06:05 | Day surgery (SDC) | payer OTHER ==
[~2023-08-10] VITALS: Ht 180.3 cm; Wt 99.5 kg
[2023-08-10] MEDS ORDERED: LR 1,000 ML IV SCH ×2 (06:35→08:20)
[2023-08-10] MEDS ORDERED: LIDOCAINE 2% 100MG/5ML SDV (FOR ANES.) As Ordered ONE (07:15)
[2023-08-10] MEDS ORDERED: fentaNYL 100 MCG/2 ML INJECTION As Ordered ONE ×2 (07:15→08:05)
[2023-08-10] MEDS ORDERED: propofoL 200 MG/20 ML VIAL As Ordered ONE (07:15)
[2023-08-10] MEDS ORDERED: MIDAZOLAM INJ 2MG/2ML VIAL As Ordered ONE (07:16)
[2023-08-10] MEDS ORDERED: KETOROLAC 60MG 2ML VIAL As Ordered ONE (07:53)
[2023-08-10] MEDS ORDERED: ONDANSETRON 4MG 2ML VIAL As Ordered ONE (07:53)
[2023-08-10] MEDS ORDERED: METOCLOPRAMIDE INJ 10MG/2ML VIAL IV PRN (08:20)
[2023-08-10] MEDS ORDERED: ONDANSETRON 4MG 2ML VIAL IV PRN (08:20)
[2023-08-10] MEDS ORDERED: fentaNYL 100 MCG/2 ML INJECTION IV PRN (08:20)
[2023-08-10] MEDS ORDERED: oxyCODONE 5MG TAB PO PRN (08:20)
[2023-08-10] MEDS ORDERED: ACET-716 PO (08:33)
[2023-08-10 09:13] VITALS: BP 113/67; TEMP 96.8; O2SAT 95
== END 2023-08-10 09:31 | disposition home or self-care (01) ==
LOC: M SDC 06:05
PROVIDERS: ATTEND Orthopaedic Surgery Hand Surgery
DX: G56.01 Carpal tunnel syndrome, right upper limb (principal); F17.210 Nicotine dependence, cigarettes, uncomplicated; Z88.0 Allergy status to penicillin; Z88.5 Allergy status to narcotic agent
CPT/HCPCS: 29848; J0665; J1100; J1885; J2250; J2405; J3010

== ENCOUNTER 2023-10-08 10:49 | Emergency (ER) | payer MEDICAID ==
[~2023-10-08] VITALS: Ht 185.4 cm; Wt 106.3 kg
[~2023-10-08 10:49] MED LIST changes: +ACET-716 PO
[2023-10-08] MEDS ORDERED: KETOROLAC 60MG 2ML VIAL IM ONE (12:30)
[2023-10-08] MEDS ORDERED: NAPR-885 PO (13:50)
[2023-10-08 13:59] VITALS: BP 126/70; TEMP 96.7; O2SAT 99
== END 2023-10-08 13:59 | disposition home or self-care (01) ==
LOC: M ED 10:49
DX: M25.562 Pain in left knee (principal); F31.9 Bipolar disorder, unspecified; F12.10 Cannabis abuse, uncomplicated; F10.10 Alcohol abuse, uncomplicated; Z88.0 Allergy status to penicillin; Z88.1 Allergy status to other antibiotic agents; Z88.5 Allergy status to narcotic agent; Z79.1 Long term (current) use of non-steroidal anti-inflammatories (NSAID)
CPT/HCPCS: 73564; 96372; 99284; J1885

== ENCOUNTER 2023-11-04 18:07 | Emergency (ER) | payer MEDICAID ==
[~2023-11-04] VITALS: Ht 180.3 cm; Wt 107.6 kg
[~2023-11-04 18:07] MED LIST changes: +NAPR-885 PO
[2023-11-04 18:09] VITALS: BP 130/64; TEMP 98.9; O2SAT 100
== END 2023-11-04 20:45 | disposition home or self-care (01) ==
LOC: M ED 18:07
DX: F41.0 Panic disorder [episodic paroxysmal anxiety] (principal); F20.9 Schizophrenia, unspecified; F31.9 Bipolar disorder, unspecified; K21.9 Gastro-esophageal reflux disease without esophagitis; Z88.0 Allergy status to penicillin; Z88.1 Allergy status to other antibiotic agents; Z88.5 Allergy status to narcotic agent; Z87.891 Personal history of nicotine dependence; F12.10 Cannabis abuse, uncomplicated

== ENCOUNTER → 2023-11-16 | Outpatient (CLI) | payer MEDICAID | LOC: M CARPUL 09:37 | PROVIDERS: ATTEND Pediatrics | DX: Z86.79 Personal history of other diseases of the circulatory system (principal); I36.1 Nonrheumatic tricuspid (valve) insufficiency ==

== ENCOUNTER 2023-12-17 00:27 | Emergency (ER) | payer MEDICAID, OTHER ==
[~2023-12-17] VITALS: Ht 180.3 cm; Wt 110.0 kg
[2023-12-17 00:52] LABS: BASO # 0.1 10^3/uL (0.0-0.2); BASO % 0.4 % (0.0-1.0); EOS # 0.1 10^3/uL (0.0-0.5); EOS % 0.3 % (0.0-3.0); HEMATOCRIT 40.7 % (42.0-52.0); HEMOGLOBIN 13.2 g/dl (13.5-17.5); LYMPH % 15.2 % (24.0-44.0); MEAN CORPUSCULAR HEMOGLOBIN 30.6 pg (27.0-33.0); MEAN CORPUSCULAR HGB CONC 32.4 g/dl (32.0-36.5); MEAN CORPUSCULAR VOLUME 94.4 fl (80.0-96.0); MONO # 1.1 10^3/uL (0.0-0.8); MONO % 5.2 % (2.0-8.0); NEUTROPHILS # 15.7 10^3/uL (1.5-8.5); NEUTROPHILS % 78.6 % (36.0-66.0); PLATELET COUNT, AUTOMATED 340 10^3/uL (150-450); RED BLOOD COUNT 4.31 10^6/uL (4.30-6.10)
[2023-12-17] MEDS: NS 1,000 ML IV ONE (01:06)
[2023-12-17 01:10] VITALS: BP 131/67; TEMP 98.1; O2SAT 100
[2023-12-17 01:21] LABS: ETHYL ALCOHOL (ETHANOL) < 0.003 % (0.000-0.010)
[2023-12-17 01:22] LABS: ALBUMIN 4.3 G/DL (3.2-5.2); ALKALINE PHOSPHATASE 56 U/L (46-116); ALT/SGPT 18 U/L (7.0-40); AST/SGOT 28 U/L (<34); BILIRUBIN,DIRECT 0.1 MG/DL (<0.4); BILIRUBIN,TOTAL 0.3 MG/DL (0.3-1.2); BLOOD UREA NITROGEN 11 MG/DL (9-23); CALCIUM LEVEL 8.8 MG/DL (8.5-10.1); CARBON DIOXIDE LEVEL 27 MMOL/L (20-31); CHLORIDE LEVEL 105 MMOL/L (98-107); CPK CREATINE PHOSPHOKINASE 981 U/L (46-171); CREATININE FOR GFR 0.98 MG/DL (0.70-1.30); GLOMERULAR FILTRATION RATE > 60.0 (>60); GLUCOSE, FASTING 176 MG/DL (60-100); POTASSIUM SERUM 3.6 MMOL/L (3.5-5.1); SALICYLATE LEVEL < 3.0 MG/DL (<30); SODIUM LEVEL 139 MMOL/L (136-145); TOTAL PROTEIN 7.3 G/DL (5.7-8.2)
[2023-12-17 01:26] LABS: THYROID STIMULATING HORMONE 2.823 uIU/ML (0.55-4.78)
[2023-12-17 01:41] LABS: AMPHETAMINES LEVEL URINE NEGATIVE (NEGATIVE); BARBITURATES URINE NEGATIVE (NEGATIVE); BENZODIAZEPINES URINE NEGATIVE (NEGATIVE); METHADONE URINE NEGATIVE (NEGATIVE); OPIATES URINE NEGATIVE (NEGATIVE); PHENCYCLIDINE URINE NEGATIVE (NEGATIVE)
[2023-12-17 01:44] LABS: CANNABINOIDS URINE POSITIVE (NEGATIVE); COCAINE METABOLITE URINE POSITIVE (NEGATIVE)
== END 2023-12-17 04:17 | disposition home or self-care (01) ==
LOC: M ED 00:27
DX: F12.120 Cannabis abuse with intoxication, uncomplicated (principal); F41.1 Generalized anxiety disorder; F31.9 Bipolar disorder, unspecified; F32.A Depression, unspecified; F14.10 Cocaine abuse, uncomplicated; F17.200 Nicotine dependence, unspecified, uncomplicated; Z88.0 Allergy status to penicillin; Z88.5 Allergy status to narcotic agent

== ENCOUNTER 2024-02-02 06:42 | Emergency (ER) | payer OTHER ==
[~2024-02-02] VITALS: Ht 180.3 cm; Wt 103.5 kg
[2024-02-02] MEDS: KETOROLAC 60MG 2ML VIAL IM ONE (09:11)
[2024-02-02] MEDS: LIDOCAINE 5% (LIDODERM) PATCH TD ONE (09:11)
[2024-02-02] MEDS: diazePAM 5MG TABLET PO ONE (09:12)
[2024-02-02] MEDS ORDERED: METH-1165 PO (11:22)
[2024-02-02] MEDS ORDERED: ASPE4PAD TOP (11:28)
[2024-02-02] MEDS ORDERED: NAPR-837 PO (11:28)
[2024-02-02] MEDS ORDERED: MENT118G7 TP (11:28)
[2024-02-02 11:57] VITALS: BP 115/63; TEMP 97.8; O2SAT 100
== END 2024-02-02 11:58 | disposition home or self-care (01) ==
LOC: M ED 06:42
DX: M54.16 Radiculopathy, lumbar region (principal); M54.50 Low back pain, unspecified; K21.9 Gastro-esophageal reflux disease without esophagitis; R51.9 Headache, unspecified; F31.9 Bipolar disorder, unspecified; F17.210 Nicotine dependence, cigarettes, uncomplicated; Z88.0 Allergy status to penicillin; Z88.1 Allergy status to other antibiotic agents; Z88.8 Allergy status to other drugs, medicaments and biological substances; Z79.899 Other long term (current) drug therapy
CPT/HCPCS: 72110; 96372; 99283; J1885

== ENCOUNTER 2024-05-03 05:52 | Emergency (ER) | payer OTHER ==
[~2024-05-03] VITALS: Ht 182.9 cm; Wt 96.0 kg
[~2024-05-03 05:52] MED LIST changes: +ASPE4PAD TOP; +MENT118G7 TP; +METH-1165 PO; +ONDA-282 PO; -ONDA4TAB6 PO
[2024-05-03 08:08] LABS: HEMATOCRIT 41.5 % (42.0-52.0); HEMOGLOBIN 13.7 g/dl (13.5-17.5); MEAN CORPUSCULAR HEMOGLOBIN 30.5 pg (27.0-33.0); MEAN CORPUSCULAR VOLUME 92.4 fl (80.0-96.0); PLATELET COUNT, AUTOMATED 302 10^3/uL (150-450); RED BLOOD COUNT 4.49 10^6/uL (4.30-6.10); WHITE BLOOD COUNT 11.9 10^3/uL (4.0-10.0)
[2024-05-03 08:25] LABS: AMPHETAMINES LEVEL URINE NEGATIVE (NEGATIVE); BARBITURATES URINE NEGATIVE (NEGATIVE); METHADONE URINE NEGATIVE (NEGATIVE); OPIATES URINE NEGATIVE (NEGATIVE); PHENCYCLIDINE URINE NEGATIVE (NEGATIVE)
[2024-05-03 08:26] LABS: BENZODIAZEPINES URINE NEGATIVE (NEGATIVE)
[2024-05-03 08:29] LABS: CANNABINOIDS URINE POSITIVE (NEGATIVE); COCAINE METABOLITE URINE POSITIVE (NEGATIVE)
[2024-05-03 08:46] LABS: ETHYL ALCOHOL (ETHANOL) < 0.003 % (0.000-0.010)
[2024-05-03 08:47] LABS: BLOOD UREA NITROGEN 14 MG/DL (9-23); CALCIUM LEVEL 9.1 MG/DL (8.5-10.1); CARBON DIOXIDE LEVEL 28 MMOL/L (20-31); CHLORIDE LEVEL 105 MMOL/L (98-107); CREATININE FOR GFR 1.16 MG/DL (0.70-1.30); GLOMERULAR FILTRATION RATE > 60.0 (>60); GLUCOSE, FASTING 69 MG/DL (60-100); POTASSIUM SERUM 3.8 MMOL/L (3.5-5.1); SALICYLATE LEVEL < 3.0 MG/DL (<30); SODIUM LEVEL 139 MMOL/L (136-145)
[2024-05-03 15:50] VITALS: BP 126/60; TEMP 97.8; O2SAT 99
== END 2024-05-03 15:53 | disposition home or self-care (01) ==
LOC: M ED 05:52
DX: F14.10 Cocaine abuse, uncomplicated (principal); F12.10 Cannabis abuse, uncomplicated; F10.10 Alcohol abuse, uncomplicated; Z88.0 Allergy status to penicillin; Z88.1 Allergy status to other antibiotic agents; Z88.8 Allergy status to other drugs, medicaments and biological substances